=== PATIENT | female | born 1945 | race Caucasian/White ===

== ENCOUNTER 2018-12-15 14:44 | Emergency (ER) | payer MEDICARE ==
--- NOTE | 2018-12-15 16:14 | XR ---
EXAMINATION TYPE: XR knee complete LT DATE OF EXAM: 12/15/2018 COMPARISON: NONE HISTORY: Knee pain TECHNIQUE: 3 views FINDINGS: I see no fracture nor dislocation. Joint spaces are normal. There is no sign of joint effus ion. IMPRESSION: Negative left knee exam. No fracture.
--- NOTE | 2018-12-15 16:28 | ED ---
General Adult HPI - General Chief complaint: Extremity Injury, Lower Stated complaint: Leg pain Time Seen by Provider: 12/15/18 14:57 Source: patient Mode of arrival: ambulatory Limitations: no limitations - History of Present Illness Initial comments: Patient is 73-year-old female presenting to emergency Department with a chief complaint of left knee pain. Patient reports she was getting out of the car when she pivoted on her left leg and felt/heard a pop. Patient reports most of the pain is located in the medial aspect of the left knee. Patient denies any joint swelling, ecchymosis or skin discoloration. Patient reports the pain does not radiate anywhere. Patient reports the pain is exacerbated with ambulation. Patient reports the pain is alleviated in full extension. Patient denies any calf tenderness. Patient denies any recent prolonged periods of inactivity, shortness of breath, chemotherapy, exogenous estrogen use, chest pain or chest tightness. Patient reports taking [id number] analgesics with minimal improvement. - Related Data Allergies Allergy/AdvReac Type Severity Reaction Status Date / Time No Known Allergies Allergy Verified 12/15/18 14:48 Review of Systems ROS Statement: Those systems with pertinent positive or pertinent negative responses have been documented in the HPI. ROS Other: All systems not noted in ROS Statement are negative. Past Medical History Past Medical History: Deep Vein Thrombosis (DVT) Additional Past Medical History / Comment(s): anemia History of Any Multi-Drug Resistant Organisms: None Reported Past Surgical History: Tonsillectomy Additional Past Surgical History / Comment(s): varicose Past Psychological History: No Psychological Hx Reported Smoking Status: Former smoker Past Alcohol Use History: None Reported Past Drug Use History: None Reported General Exam Limitations: no limitations General appearance: alert, in no apparent distress Head exam: Present: atraumatic, normocephalic, normal inspection Eye exam: Present: normal appearance, PERRL, EOMI Pupils: Present: normal accommodation ENT exam: Present: normal exam, mucous membranes moist, normal external ear exam Neck exam: Present: normal inspection, full ROM Respiratory exam: Present: normal lung sounds bilaterally. Absent: respiratory distress, wheezes, rales Cardiovascular Exam: Present: regular rate, normal rhythm, normal heart sounds Extremities exam: Present: normal inspection, tenderness (Tenderness with palpation along the medial aspect of the left knee.), normal capillary refill, other (No masses noted in the popliteal region of the left knee. +2 dorsalis pedis and posterior tibialis bilaterally). Absent: full ROM (O range of motion with flexion.), pedal edema, joint swelling, calf tenderness (Bilateral) Back exam: Present: normal inspection, full ROM Neurological exam: Present: alert, oriented X3 Psychiatric exam: Present: normal affect, normal mood Skin exam: Present: warm, intact, normal color (Multiple small varicose veins noted on bilateral lower extremities) Course Vital Signs 12/15/18 14:48 Temperature 97.9 F Pulse Rate 91 Respiratory 18 Rate Blood Pressure 152/84 O2 Sat by Pulse 96 Oximetry Medical Decision Making - Medical Decision Making Patient is a 73-year-old female presenting to emergency Department with a chief complaint of left knee pain. X-rays unremarkable. Based on physical examination suspect the pain is secondary to a ligamentous injury. knee immobilizer will be applied. Patient advised to follow-up with orthopedics for further management. Strict return parameters were thoroughly discussed the patient was understanding and agreeable. Patient advised to alternate between Tylenol and ibuprofen for pain control. Case discussed with physician. Disposition Clinical Impression: Knee pain, left Disposition: HOME SELF-CARE Condition: Stable Instructions (If sedation given, give patient instructions): Knee Pain (ED) Additional Instructions: Please follow with campaign marketing specialist. Alternate between Tylenol and ibuprofen for pain control. Return to emergency department if symptoms worsen. Is patient prescribed a controlled substance at d/c from ED?: No Referrals: None,Stated [Primary Care Provider] - 1-2 days Arnold Stewart MD [STAFF PHYSICIAN] - 1-2 days Time of Disposition: 16:28
[2018-12-15 16:56] VITALS: BP 138/84; PULSE 80; RESP 16; TEMP 98
== END 2018-12-15 16:55 | disposition home or self-care (01) ==
LOC: EC 14:44
DX: M25.562 Pain in left knee (principal); I83.93 Asymptomatic varicose veins of bilateral lower extremities; Z87.891 Personal history of nicotine dependence; Z86.718 Personal history of other venous thrombosis and embolism
CPT/HCPCS: 73562; 99283; L1830

== ENCOUNTER 2021-08-09 17:41 | Emergency (ER) | payer MEDICARE ==
[2021-08-09 17:49] VITALS: TEMP 98.3
--- NOTE | 2021-08-09 18:27 | XR ---
EXAMINATION TYPE: XR chest 2V DATE OF EXAM: 08/09/2021 COMPARISON: NONE HISTORY: Chest pain TECHNIQUE: 2 views FINDINGS: Heart is normal. There is moderate hiatal hernia. The lungs appear clear of infiltrate. No pulmonary consolidation. No heart failure. Bony thorax is intact. IMPRESSION: Hiatal hernia. No active cardiopulmonary disease.
[2021-08-09 18:39] LABS: ALT 19 U/L (4-34); AST 23 U/L (14-36); African American GFR (CKD) >90 (>60 ml/min/1.73 sqM); Albumin 4.5 g/dL (3.5-5.0); Alkaline Phosphatase 65 U/L (38-126); Anion Gap 11 mmol/L; Blood Urea Nitrogen 13 mg/dL (7-17); Calcium 10.3 mg/dL (8.4-10.2); Carbon Dioxide 24 mmol/L (22-30); Chloride 100 mmol/L (98-107); Glucose 101 mg/dL (74-99); Lipase 183 U/L (23-300); Magnesium 1.7 mg/dL (1.6-2.3); Non-African American GFR(CKD) >90 (>60 ml/min/1.73 sqM); Potassium 3.8 mmol/L (3.5-5.1); Sodium 135 mmol/L (137-145); Total Bilirubin 1.2 mg/dL (0.2-1.3); Total Protein 7.9 g/dL (6.3-8.2)
[2021-08-09 18:40] LABS: Basophils # (A) 0.1 k/uL (0-0.2); Basophils % (A) 1 %; Eosinophils # (A) 0.1 k/uL (0-0.7); Eosinophils % (A) 1 %; HCT 53.2 % (34.0-46.0); Lymphocytes # (A) 1.9 k/uL (1.0-4.8); Lymphocytes % (A) 23 %; MCH 29.3 pg (25.0-35.0); MCV 91.5 fL (80.0-100.0); Mean Platelet Volume 8.9; Monocytes # (A) 0.5 k/uL (0-1.0); Monocytes % (A) 5 %; Neutrophils # (A) 5.7 k/uL (1.3-7.7); Neutrophils % (A) 68 %; Platelet Count 225 k/uL (150-450); RBC 5.81 m/uL (3.80-5.40); RDW 12.7 % (11.5-15.5); WBC 8.4 k/uL (3.8-10.6)
[2021-08-09 18:48] LABS: INR 0.9 (<1.2); Partial Thromboplastin Time 22.9 sec (22.0-30.0); Prothrombin Time 10.4 sec (9.0-12.0)
[2021-08-09 19:34] VITALS: RESP 18
--- NOTE | 2021-08-09 19:44 | ED ---
General Adult HPI - General Chief complaint: Chest Pain Stated complaint: Chest Pain Time Seen by Provider: 08/09/21 18:03 Source: patient, RN notes reviewed, old records reviewed Mode of arrival: ambulatory Limitations: no limitations - History of Present Illness Initial comments: 75-year-old female presenting for an episode of chest pain while eating dinner. Patient's pain has subsided at the time my evaluation. She described it as sharp in nature. There was no associated vomiting. Patient took aspirin prior to arrival. She has no previous history of CAD. No diaphoresis. No radiating symptoms. - Related Data Home Medications Medication Instructions Recorded Confirmed Omeprazole 20 mg PO DAILY 08/09/21 08/09/21 amLODIPine [Norvasc] 5 mg PO DAILY@1230 08/09/21 08/09/21 Allergies Allergy/AdvReac Type Severity Reaction Status Date / Time procaine [From Novocain] Allergy Rapid Verified 08/09/21 19:44 Heart Rate Review of Systems ROS Statement: Those systems with pertinent positive or pertinent negative responses have been documented in the HPI. ROS Other: All systems not noted in ROS Statement are negative. Past Medical History Past Medical History: Deep Vein Thrombosis (DVT) Additional Past Medical History / Comment(s): anemia History of Any Multi-Drug Resistant Organisms: None Reported Past Surgical History: Tonsillectomy Additional Past Surgical History / Comment(s): varicose Past Psychological History: No Psychological Hx Reported Smoking Status: Former smoker Past Alcohol Use History: None Reported Past Drug Use History: None Reported General Exam Limitations: no limitations General appearance: alert, in no apparent distress Head exam: Present: atraumatic, normocephalic Eye exam: Present: normal appearance, PERRL ENT exam: Present: normal exam Neck exam: Present: normal inspection. Absent: tenderness, meningismus Respiratory exam: Present: normal lung sounds bilaterally. Absent: respiratory distress, wheezes Cardiovascular Exam: Present: regular rate, normal rhythm GI/Abdominal exam: Present: soft. Absent: distended, tenderness, guarding, rebound Extremities exam: Present: normal inspection, normal capillary refill. Absent: pedal edema, calf tenderness Neurological exam: Present: alert, oriented X3, CN II-XII intact. Absent: motor sensory deficit Psychiatric exam: Present: normal affect, normal mood Skin exam: Present: warm, dry, intact. Absent: cyanosis, diaphoretic Course Vital Signs 04/11/22 04/11/22 17:46 19:30 Temperature 98.3 F Pulse Rate 99 81 Respiratory 16 18 Rate Blood Pressure 153/100 142/92 O2 Sat by Pulse 98 95 Oximetry - Reevaluation(s) Reevaluation #1: 08/09/21 19:40 Alert and ambulatory in the emergency department without pain Reevaluation #2: 08/09/21 21:24 No further chest pain. EKG Findings - EKG Comments: EKG Findings:: EKG: Sinus rhythm left atrial enlargement rate of 89, OK interval 147, QRS duration 78, QTC [address] segment elevation. Medical Decision Making - Medical Decision Making 75-year-old female presents with an episode of chest pain resolved prior to arrival. This central and bilateral lower chest pain. Did not radiate to her back or arms. Resolved at the time my evaluation. EKG is sinus rhythm without ST segment elevation. Chest x-ray shows hiatal hernia without acute cardiopulmonary findings. She hemoglobin 17, normal white blood cell count, normal electrolytes, negative initial troponin. I did discuss admission versus repeat troponin in the emergency department. She agrees to repeat troponin but does not want to be admitted. The repeat troponin is also negative. Patient will follow-up with her primary care physician. She's given strict return parameters. - Lab Data Result diagrams: 08/09/21 18:11 08/09/21 18:11 Lab Results 08/09/21 08/09/21 08/09/21 Range/Units 18:11 18:11 18:11 WBC 8.4 (3.8-10.6) k/uL RBC 5.81 H (3.80-5.40) m/uL Hgb 17.0 H (11.4-16.0) gm/dL Hct 53.2 H (34.0-46.0) % MCV 91.5 (80.0-100.0) fL MCH 29.3 (25.0-35.0) pg MCHC 32.0 (31.0-37.0) g/dL RDW 12.7 (11.5-15.5) % Plt Count 225 (150-450) k/uL MPV 8.9 Neutrophils % 68 % Lymphocytes % 23 % Monocytes % 5 % Eosinophils % 1 % Basophils % 1 % Neutrophils # 5.7 (1.3-7.7) k/uL Lymphocytes # 1.9 (1.0-4.8) k/uL Monocytes # 0.5 (0-1.0) k/uL Eosinophils # 0.1 (0-0.7) k/uL Basophils # 0.1 (0-0.2) k/uL PT 10.4 (9.0-12.0) sec INR 0.9 (<1.2) APTT 22.9 (22.0-30.0) sec D-Dimer 0.53 (<0.60) mg/L FEU Sodium 135 L (137-145) mmol/L Potassium 3.8 (3.5-5.1) mmol/L Chloride 100 (98-107) mmol/L Carbon Dioxide 24 (22-30) mmol/L Anion Gap 11 mmol/L BUN 13 (7-17) mg/dL Creatinine 0.57 (0.52-1.04) mg/dL Est GFR (CKD-EPI)AfAm >90 (>60 ml/min/1.73 sqM) Est GFR (CKD-EPI)NonAf >90 (>60 ml/min/1.73 sqM) Glucose 101 H (74-99) mg/dL Calcium 10.3 H (8.4-10.2) mg/dL Magnesium 1.7 (1.6-2.3) mg/dL Total Bilirubin 1.2 (0.2-1.3) mg/dL AST 23 (14-36) U/L ALT 19 (4-34) U/L Alkaline Phosphatase 65 (38-126) U/L Troponin I (0.000-0.034) ng/mL Total Protein 7.9 (6.3-8.2) g/dL Albumin 4.5 (3.5-5.0) g/dL Lipase 183 (23-300) U/L 08/09/21 08/09/21 Range/Units 18:11 20:51 WBC (3.8-10.6) k/uL RBC (3.80-5.40) m/uL Hgb (11.4-16.0) gm/dL Hct (34.0-46.0) % MCV (80.0-100.0) fL MCH (25.0-35.0) pg MCHC (31.0-37.0) g/dL RDW (11.5-15.5) % Plt Count (150-450) k/uL MPV Neutrophils % % Lymphocytes % % Monocytes % % Eosinophils % % Basophils % % Neutrophils # (1.3-7.7) k/uL Lymphocytes # (1.0-4.8) k/uL Monocytes # (0-1.0) k/uL Eosinophils # (0-0.7) k/uL Basophils # (0-0.2) k/uL PT (9.0-12.0) sec INR (<1.2) APTT (22.0-30.0) sec D-Dimer (<0.60) mg/L FEU Sodium (137-145) mmol/L Potassium (3.5-5.1) mmol/L Chloride (98-107) mmol/L Carbon Dioxide (22-30) mmol/L Anion Gap mmol/L BUN (7-17) mg/dL Creatinine (0.52-1.04) mg/dL Est GFR (CKD-EPI)AfAm (>60 ml/min/1.73 sqM) Est GFR (CKD-EPI)NonAf (>60 ml/min/1.73 sqM) Glucose (74-99) mg/dL Calcium (8.4-10.2) mg/dL Magnesium (1.6-2.3) mg/dL Total Bilirubin (0.2-1.3) mg/dL AST (14-36) U/L ALT (4-34) U/L Alkaline Phosphatase (38-126) U/L Troponin I <0.012 <0.012 (0.000-0.034) ng/mL Total Protein (6.3-8.2) g/dL Albumin (3.5-5.0) g/dL Lipase (23-300) U/L Disposition Clinical Impression: Chest pain Disposition: HOME SELF-CARE Condition: Good Instructions (If sedation given, give patient instructions): Chest Pain (ED) Additional Instructions: Please follow up with her primary care physician. Please return to emergency department with any worsening or changing symptoms. Is patient prescribed a controlled substance at d/c from ED?: No Referrals: Nonstaff,Physician [Primary Care Provider] - 1-2 days Time of Disposition: 21:24
[2021-08-09 21:33] VITALS: BP 142/84; PULSE 82
== END 2021-08-09 21:36 | disposition home or self-care (01) ==
LOC: EC 17:41
DX: I20.0 Unstable angina (principal); Z88.4 Allergy status to anesthetic agent; Z87.891 Personal history of nicotine dependence
CPT/HCPCS: 36415; 71046; 80053; 83690; 83735; 84484; 85025; 85379; 85610; 85730; 93005; 99285